=== PATIENT | female | born 1950 | race Caucasian/White ===

== ENCOUNTER 2023-05-07 08:47 | Emergency (ER) | payer MEDICARE ==
[~2023-05-07] VITALS: Ht 162.6 cm; Wt 90.7 kg
[2023-05-07] MEDS ORDERED: ROSU20TA2 PO (09:07)
[2023-05-07] MEDS ORDERED: CLOP75TA15 PO (09:07)
[2023-05-07] MEDS ORDERED: METO-357 PO (09:07)
[2023-05-07] MEDS ORDERED: HYDR-3980 PO (12:17)
[2023-05-07 12:30] VITALS: O2SAT 97
== END 2023-05-07 12:41 | disposition home or self-care (01) ==
LOC: ER 08:52
DX: S09.8XXA Other specified injuries of head, initial encounter (principal); S63.591A Other specified sprain of right wrist, initial encounter; S80.02XA Contusion of left knee, initial encounter; Z79.899 Other long term (current) drug therapy; Z60.2 Problems related to living alone; W18.39XA Other fall on same level, initial encounter; Y93.89 Activity, other specified; Y92.89 Other specified places as the place of occurrence of the external cause; Y99.8 Other external cause status
CPT/HCPCS: 70450; 73100; 73560; 93005; A4606; A4663